=== PATIENT | female | born 1945 | race Hispanic/Latino ===

== ENCOUNTER 2020-08-20 16:14 | Inpatient (IN) | payer SELFPAY ==
[~2020-08-20] VITALS: Ht 134.6 cm; Wt 43.5 kg
[~2020-08-20 16:14] MED LIST: AMLODIPINE BESY10 MG PO; PRAVASTATIN SOD40 MG PO
--- NOTE | 2020-08-20 16:19 | Emergency Department Note ---
History of Present Illnes History of Present Illness Chief Complaint: General Medicine Complaints History of Present Illness 74 yof brought by family for acute confusional state since yesterday however noted to have fallen with dizziness 3 days prior. 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 Any updates have been documented here. Past Medical History Recent Fever: No Clinical Suspicion of Infectio: No New/Unexplained Change in Ment: Yes Past Medical History: Hypertension Past Surgical History: None Social History Smoking Cessation: Never Smoker Alcohol Use: None Any Illegal Drug Use: No Review of Systems Review of Systems Constitutional: Reports no symptoms EENTM: Reports no symptoms Cardiovascular: Reports no symptoms Respiratory: Reports no symptoms Gastrointestinal: Reports no symptoms Genitourinary: Reports no symptoms Musculoskeletal: Reports no symptoms Integumentary: Reports no symptoms Neurological: Reports other (confusion , dizziness) Psychological: Reports no symptoms Endocrine: Reports no symptoms Hematological/Lymphatic: Reports no symptoms Physical Exam Related Data Allergies: Coded Allergies: No Known Allergies (Unverified , 06/01/15) Vital signs reviewed: Yes Physical Exam CONSTITUTIONAL Constitutional: Present well-developed, Present well-nourished HENT HENT: Present normocephalic, Present atraumatic, Present oropharynx clear/moist, Present nose normal HENT L/R: Present left ext ear normal, Present right ext ear normal EYES Eyes: Reports PERRL, Reports conjunctivae normal NECK Neck: Present ROM normal PULMONARY Pulmonary: Present effort normal, Present breath sounds normal CARDIOVASCULAR Cardiovascular: Present regular rhythm, Present heart sounds normal, Present capillary refill normal, Present normal rate GASTROINTESTINAL Abdominal: Present soft, Present nontender, Present bowel sounds normal GENITOURINARY Genitourinary: Present exam deferred SKIN Skin: Present warm, Present dry MUSCULOSKELETAL Musculoskeletal: Present ROM normal NEUROLOGICAL Neurological: Present alert, Present no gross motor or sensory deficits, Pre sent other (AO x 1) PSYCHOLOGICAL Psychological: Present mood/affect normal, Present judgement normal Results Laboratory Lab results reviewed: Yes Imaging Imaging results reviewed: Yes Impressions [place] [id number] Patient Name: STARLA MARIN MR #: [id number] : 1945 Age/Sex: 74/F Req #: [id number] Adm Physician: Ordered by: DARLENE COTTON DO Report #: [id number] Location: ER Room/Bed: Procedure: [id number] CT/CT BRAIN WO Exam Date: 08/20/20 Exam Time: 1630 REPORT STATUS: Signed Exam: Head CT without contrast History: Altered mental status Comparison studies: None Technique: Axial images were obtained from the skull base to the vertex. Coronal and sagittal images reconstructed from the axial data. Dose modulation, iterative reconstruction, and/or weight based adjustment of the mA/kV was utilized to reduce the radiation dose to as low as reasonably achievable. Radiation dose: Total DLP: 921.4 mGy*cm. Estimated effective dose: DLP x 0.015 Intravenous contrast: None Findings: Scalp: No abnormalities. Bones: No fractures, blastic or lytic lesions. Brain sulci: Appropriate size for patient's age Ventricles: Occipital horns are partially effaced. Remaining ventricles are normal in size. No hydrocephalus. Extra-axial spaces: No masses, no fluid collection. Parenchyma: Acute infarcts in the bilateral CNA GNA territories are superimposed on acute or chronic infarcts with cortical/subcortical hypodensity and loss of differentiation along the bilateral lingual and inferior occipital gyri, bilateral occipitotemporal gyri, right para-hippocampal gyrus and within the bilateral hippocampi. Areas of infarction along bilateral inferior occipital lobes may be subacute to chronic. Small age-indeterminate nonhemorrhagic infarct with focal hypodensity in the superior right paramedian cerebellum. Scattered and ill-defined hypodensities in the supratentorial white matter are nonspecific but are most compatible with chronic microvascular ischemic changes. Small dystrophic calcification without surrounding edema in the right occipital lobe just above the calcarine fissure and along the left parietal-occipital sulcus may be sequela of remote infection or inflammation. Sellar/suprasellar region: No abnormalities. Craniocervical junction: Patent foramen magnum. No Chiari one malformation. Middle ear cavities and mastoids: Clear. Included paranasal sinuses: Right sphenoid sinus opacified with chronic mucoperiosteal thickening and hyperdense and partially calcified secretions. Remaining included sinuses are clear. Incidental findings: Bilateral intraocular lens replacements. Atherosclerotic calcifications in the carotid siphons and intradural vertebral arteries. IMPRESSION: 1. Acute nonhemorrhagic infarct superimposed on more remote infarcts (subacute or chronic) in the bilateral CNA GNA territories with involvement of the bilateral hippocampi without significant mass effect. 2. Small nonhemorrhagic age-indeterminate infarct in the right superior paramedian cerebellum. 3. Moderate chronic microvascular ischemic changes. 4. Incidental dystrophic calcification as sequela of remote infection/inflammation. Findings discussed with Dr. Cotton at 5:15 PM on 08/20/2020. Signed by: Dr. Taylor Montano M.D. on 08/20/2020 5:22 PM Dictated By: TAYLOR MONTANO MD 21 Transcribed By: LATRELL on 08/20/201721 COPY TO: DARLENE COTTON DO~ Procedures 12 Lead ECG Interpretation ECG Interpretation : ECG: ECG 1 Lens Grinding Machine Operator: Interpreted by ED physician Date: Aug 20, 2020 Time: 16:46 Prior ECG tracings: reviewed Rhythm: sinus rhythm Rate: normal BPM: 95 QRS axis: normal ST segments normal: Yes T waves normal: Yes Clinical Impression: normal ECG Clinical Decision Tools NIH Stroke Scale Interval: baselline NIH Stroke Score: NIH Stroke Score Response (Comments) Value Level of Consciousness Alert, Keenly Responsive 0 Level of Consciousness Questions Answers One Correctly 1 Level of Consciousness Commands Performs Both Tasks 0 Lateral Gaze Paresis Normal 0 Visual Field Loss No Visual Loss 0 Facial Palsy Normal Symmetrical Move 0 Motor Left Arm No Drift, Arm Stays 45/90 0 Motor Right Arm No Drift, Arm Stays 45/90 0 Motor Left Leg No Drift, Arm Stays 45/90 0 Motor Right Leg No Drift, Arm Stays 45/90 0 Limb Ataxia Absent 0 Sensory Loss Normal 0 Language Aphasia No Aphasia, Normal 0 Dysarthria Normal 0 Extinction and Inattention No Abnormality 0 Total 1 Baseline increased by 4: No Assessment & Plan Medical Decision Making MDM Diff Dx : CVA, UTI, brain trauma. ACS Assessment & Plan Final Impression: (1) Cerebrovascular accident (CVA) involving posterior circulation Depart Disposition: ADMITTED Home Meds Reported Medications Meclizine Hcl (MECLIZINE HCL) 12.5 Mg Tablet, 25 MG PO TID, TAB 08/20/20 Metformin Hcl (METFORMIN HCL) 500 Mg Tablet, 500 MG PO BID, #60 TAB 08/20/20 Losartan Potassium (LOSARTAN POTASSIUM) 25 Mg Tablet, DAILY 08/20/20 Discontinued Reported Medications Pravastatin Sodium (PRAVASTATIN SODIUM) 40 Mg Tablet, 40 MG PO HS 06/04/15 Amlodipine Besylate (AMLODIPINE BESYLATE) 10 Mg Tablet, 10 MG PO HS, TAB 06/04/15 DARLENE COTTON DO Aug 20, 2020 16:19
[2020-08-20] MEDS ORDERED: ASPIRIN 81 MG CHEW TAB PO ONE ×2 (16:30→17:30)
[2020-08-20 16:55] LABS: BASOPHILS % 0.4 % (0.0-1.0); EOSINOPHILS % 0.1 % (0.0-6.0); HEMATOCRIT 40.7 % (34.2-44.1); LYMPHOCYTES # (AUTO) 2.8 (1.0-3.2); MEAN CORPUSCULAR HEMOGLOBIN 26.6 pg (28-32); MEAN CORPUSCULAR HGB CONC 31.9 g/dL (31-35); MEAN CORPUSCULAR VOLUME 83.2 fL (81-99); MONOCYTES # (AUTO) 0.7 (0.2-0.8); MONOCYTES % 7.1 % (4.4-11.3); NEUTROPHILS # (AUTO) 6.5 (2.1-6.9); NEUTROPHILS % 64.1 % (38.7-80.0); PLATELET COUNT 341 x10e3/uL (140-360); RED BLOOD COUNT 4.89 x10e6/uL (3.6-5.1); RED CELL DISTRIBUTION WIDTH 13.1 % (11.7-14.4)
[2020-08-20 16:56] LABS: COLOR,URINE YELLOW (YELLOW)
[2020-08-20 16:57] LABS: BILIRUBIN,URINE NEGATIVE (NEGATIVE); CLARITY,URINE SL CLOUDY (CLEAR); KETONES,URINE NEGATIVE (NEGATIVE); LEUKOCYTE ESTERASE ,URINE MODERATE (NEGATIVE); NITRITE,URINE NEGATIVE (NEGATIVE); PROTEIN,URINE DIPSTICK NEGATIVE (NEGATIVE); URINE UROBILINOGEN 0.2 mg/dL (0.2 - 1)
[2020-08-20 17:08] LABS: BACTERIA,URINE FEW /HPF
[2020-08-20 17:09] LABS: EPITHELIAL CELLS,URINE FEW /LPF; RENAL EPITHELIAL CELLS,URINE RARE
--- NOTE | 2020-08-20 17:09 | Diagnostic Imaging Report ---
EXAMINATION: CHEST SINGLE (PORTABLE) INDICATION: ^confusion ^[id number] ^1630 COMPARISON: None FINDINGS: TUBES and LINES: None. LUNGS: Normal lung volumes. Thickened right paratracheal stripe, may be secondary to mediastinal mass or right upper lobe opacity along the mediastinum. No additional focal opacities or consolidation. PLEURA: No pleural effusion or pneumothorax. HEART AND MEDIASTINUM: Right paratracheal stripe thickening as described above. Cardiac silhouette is unremarkable. BONES AND SOFT TISSUES: No acute osseous lesion. Soft tissues are unremarkable. UPPER ABDOMEN: No free air under the diaphragm. IMPRESSION: Thickened right paratracheal stripe, may be secondary to mediastinal mass or right upper lobe opacity along the mediastinum. Recommend chest CT with contrast for further evaluation. Signed by: Dr. Scot Champagne M.D. on 08/20/2020 5:06 PM
[2020-08-20 17:11] LABS: ALANINE AMINOTRANSFERASE 25 IU/L (0-55); ALBUMIN/GLOBULIN RATIO 0.8 (0.8-2.0); ALKALINE PHOSPHATASE 87 IU/L (40-150); ANION GAP 17.4 mmol/L (8-16); BLOOD UREA NITROGEN 8 mg/dL (7-26); BUN/CREATININE RATIO 11 (6-25); CALCIUM 9.5 mg/dL (8.4-10.2); CARBON DIOXIDE 23 mmol/L (22-29); CHLORIDE 103 mmol/L (98-107); CREATINE KINASE 58 IU/L (29-168); CREATININE, SERUM 0.72 mg/dL (0.57-1.11); EST GLOMERULAR FILTRATION RATE > 60 ML/MIN (60-); GLUCOSE 122 mg/dL (74-118); POTASSIUM 4.4 mmol/L (3.5-5.1); SODIUM 139 mmol/L (136-145)
--- NOTE | 2020-08-20 17:25 | Diagnostic Imaging Report ---
Exam: Head CT without contrast History: Altered mental status Comparison studies: None Technique: Axial images were obtained from the skull base to the vertex. Coronal and sagittal images reconstructed from the axial data. Dose modulation, iterative reconstruction, and/or weight based adjustment of the mA/kV was utilized to reduce the radiation dose to as low as reasonably achievable. Radiation dose: Total DLP: 921.4 mGy*cm. Estimated effective dose: DLP x 0.015 Intravenous contrast: None Findings: Scalp: No abnormalities. Bones: No fractures, blastic or lytic lesions. Brain sulci: Appropriate size for patient's age Ventricles: Occipital horns are partially effaced. Remaining ventricles are normal in size. No hydrocephalus. Extra-axial spaces: No masses, no fluid collection. Parenchyma: Acute infarcts in the bilateral ERGONOMICS ENGINEER territories are superimposed on acute or chronic infarcts with cortical/subcortical hypodensity and loss of differentiation along the bilateral lingual and inferior occipital gyri, bilateral occipitotemporal gyri, right para-hippocampal gyrus and within the bilateral hippocampi. Areas of infarction along bilateral inferior occipital lobes may be subacute to chronic. Small age-indeterminate nonhemorrhagic infarct with focal hypodensity in the superior right paramedian cerebellum. Scattered and ill-defined hypodensities in the supratentorial white matter are nonspecific but are most compatible with chronic microvascular ischemic changes. Small dystrophic calcification without surrounding edema in the right occipital lobe just above the calcarine fissure and along the left parietal-occipital sulcus may be sequela of remote infection or inflammation. Sellar/suprasellar region: No abnormalities. Craniocervical junction: Patent foramen magnum. No Chiari one malformation. Middle ear cavities and mastoids: Clear. Included paranasal sinuses: Right sphenoid sinus opacified with chronic mucoperiosteal thickening and hyperdense and partially calcified secretions. Remaining included sinuses are clear. Incidental findings: Bilateral intraocular lens replacements. Atherosclerotic calcifications in the carotid siphons and intradural vertebral arteries. IMPRESSION: 1. Acute nonhemorrhagic infarct superimposed on more remote infarcts (subacute or chronic) in the bilateral ERGONOMICS ENGINEER territories with involvement of the bilateral hippocampi without significant mass effect. 2. Small nonhemorrhagic age-indeterminate infarct in the right superior paramedian cerebellum. 3. Moderate chronic microvascular ischemic changes. 4. Incidental dystrophic calcification as sequela of remote infection/inflammation. Findings discussed with Dr. Cotton at 5:15 PM on 08/20/2020. Signed by: Dr. Ruddy Montano M.D. on 08/20/2020 5:22 PM
--- NOTE | 2020-08-20 18:25 | NUR ---
PATIENT ARRIVED TO ROOM 297 FROM ER. SHE IS IN STABLE CONDITION. DAUGHTER AT BEDSIDE. ORIENTED TO ROOM AND POLICIES. CALL LIGHT WITHIN REACH. BED IN THE LOWEST POSITION.
--- NOTE | 2020-08-20 19:15 | NUR ---
patient received awake, alert, lying quietly in bed. no c/o pain noted. admit assessment/history obtained. call arndt placed within reach. patient instructed to call for assistance when needed.
--- NOTE | 2020-08-20 19:17 | NUR ---
Bedside shift report given to oncoming nurse. Patient is resting in bed. No acute distress noted at this time. Daughter at bedside. Call light within reach. Bed in the lowest position. Oncoming nurse notified that admission has not been done.
--- NOTE | 2020-08-20 19:45 | NUR ---
report on this patient given to Gilberto Arita RN at this time.
[2020-08-20 20:00] VITALS: BP 137/94
[2020-08-20 20:34] VITALS: BP 137/94
[2020-08-20] MEDS ORDERED: LOSARTAN POTASS25 MG (21:36)
[2020-08-20] MEDS ORDERED: METFORMIN HCL500 MG PO (21:36)
[2020-08-20] MEDS ORDERED: MECLIZINE HCL12.5 MG PO (21:36)
[2020-08-20] MEDS: ALPRAZOLAM 0.25 MG TAB PO PRN (22:24)
[2020-08-21] VITALS: BP 125/81
[2020-08-21 04:00] VITALS: BP 118/48
--- NOTE | 2020-08-21 08:11 | NUR ---
H&P cc: weakness HPI: 74yoF, PCP pt/daughter do not recall, developed waekness and fell on Monday, with associated dizziness. WEnt to PCP, thought it was related to vertigo, given meclizine. By Monday, pt fell again, and now confused, but no weakness/speech changes, daughter brought her to hospita, imaging showed acute on chr stroke. Hx obtained from daughter at bedside. PMH: DM2, HTN PSHx: none Allergies; see emr FH/SH; no cigs; single meds; see MAR ROS: no f/c/s/N/V/D/JUÁREZ/cp/sob/vision changes/leg pain/ v/s revd PE tired appearing anicteric ns1s2 mod bs soft nt nd no e/t skin dry flat affect a&ox3; francis; LEFT ARM AND LEFT LEG 4/5 MOTOR; labs/meds revd A/P: Acute ischemic stroke- f/u MRI; check echo; start ASA and lipitor; PT consult; tele; neuro consult Left hemiplegia- PT consult; as above UTI- ceftiraxone DM2- hab1c/lipids; Mediastinal abnormality? check CT with contrast HTN- losartan Prop: lovenox; pepcid dispo: f/u neuro. SAUNDRA FORBES MD, PHD.
[2020-08-21] MEDS ORDERED: ACETAMINOPHEN 325 MG TAB PO PRN (08:15)
[2020-08-21] MEDS ORDERED: DOCUSATE SODIUM 100 MG CAP PO PRN (08:15)
[2020-08-21] MEDS ORDERED: ONDANSETRON HCL INJ 2MG/ML 2ML 2 MG/ML VIAL IV PRN (08:15)
[2020-08-21 08:26] VITALS: BP 122/88
[2020-08-21 08:35] VITALS: BP 122/88
[2020-08-21] MEDS: LOSARTAN POTASSIUM 25 MG TAB PO SCH (08:57)
[2020-08-21] MEDS ORDERED: ASPIRIN 81 MG ENTERIC COATED PO SCH (09:00)
[2020-08-21 09:18] LABS: CHOL/HDL RATIO 4.1 (3.0-3.6)
[2020-08-21 10:38] LABS: FREE THYROXINE INDEX 2.8535 (1.4-3.8); THYROID STIMULATING HORMONE 0.9 uIU/mL (0.350-4.940)
[2020-08-21] MEDS ORDERED: SODIUM CHLORIDE 0.9% 100 ML ONE (10:48)
[2020-08-21] MEDS ORDERED: IOPAMIDOL 370 MG/ML 200 ML INFUS..BTL INJ ONE (10:49)
--- NOTE | 2020-08-21 10:55 | NUR ---
Patient is transported for radiology at this time.
--- NOTE | 2020-08-21 10:57 | NUR ---
PT evaluated patient today. Pt had good strength on BUE and BLE. Ambulated w/o AD. No LOB but unable to walk a straight path. PT mentioned need for a RW but pt refused. Per daughter, pt may not use the AD even if it will be provided to her. PT advised daughter to always walk close to pt to prevent falling. Pt with short term memory loss and unable to recall safety instructions. No PT needed at this time. Will recommend home with home health or outpatient PT services to address balance issues. Addendum: 08/21/20 at 1102 by Paulie Steele PT Amended: Links added.
--- NOTE | 2020-08-21 11:59 | Diagnostic Imaging Report ---
EXAMINATION: MRI of the brain without contrast. HISTORY: 74-year-old female status post fall, confusion, cerebrovascular accident, neurocysticercosis, COMPARISON: Head CT 08/20/2020 TECHNIQUE: Sagittal T2; axial DWI, T2, FLAIR, T1-IR, T2 gradient echo; coronal FLAIR. IMAGE QUALITY: Artifact from patient's motion limits evaluation of all the sequences. FINDINGS: Parenchyma: 1. Diffuse left occipital lobe extending to the left posterior//medial temporal lobe and parahippocampal region FLAIR hyperintensity and restricted diffusion is consistent with acute left COMMUNITY SPECIALIST ischemic infarct, subtle left medial occipital chart form GRE hypointensity may correspond to microhemorrhage. Mild local mass effect, no midline shift or herniation. 2. Additional areas of acute ischemic infarction involving the right medial temporal lobe to include the hippocampus and parahippocampal regions. Additional smaller foci of acute cortical infarct in the right paramedian vermix and left posterior inferior cerebellum. 3. Cortical and subcortical encephalomalacia in the right inferior occipital lobe/lingual generous is likely the sequela from remote infarct in the right ISAAC distribution. 4. Few scattered and mildly confluent periventricular white matter hypodensities, most likely consistent with chronic small vessel ischemic changes. 5. Again noted bilateral occipital parietal parenchymal calcifications, likely the sequela from remote infection such as neurocysticercosis. 6. No mass, hemorrhage, acute or chronic infarcts. Skull: Unremarkable. Vessels: Expected flow voids present in the major arteries and dural sinuses. Extra-axial spaces: No abnormal signal intensity or mass effect. Brain volume: Within normal limits for age. Ventricles: No hydrocephalus or displacement. Foramen magnum: Unremarkable. Sella: Unremarkable. Paranasal / mastoid sinuses: No significant inflammatory disease. IMPRESSION: Limited evaluation due to motion artifact in spite of this limitation findings as follows: 1. Acute ischemic infarct in the left occipital lobe with possible minimal micro hemorrhagic conversion. Mild local mass effect, no midline shift or herniations. 2. Additional acute ischemic infarcts in the right medial occipitotemporal region and tiny acute cortical infarcts in the vermix and left cerebellum. 3. Findings suggest posterior circulation emboli, a CT angiogram of the head and neck is recommended for further evaluation. 4. Chronic right occipital infarct and microvascular ischemic changes. Signed by: Dr. Nimo Burnette M.D. on 08/21/2020 11:55 AM
--- NOTE | 2020-08-21 12:00 | NUR ---
Patient is back to the room from radiology.
[2020-08-21 12:30] VITALS: BP 116/87
--- NOTE | 2020-08-21 12:35 | Consultation ---
DATE OF CONSULTATION: Neurology Consultation HISTORY OF PRESENT ILLNESS: Ms. Anna Morton is a 74-year-old female with hypertension and diabetes, who is supposed to be taking aspirin at home but does not, takes alprazolam for anxiety, who comes in after two days of confusion, which reportedly started on Monday. The daughter states that she started having memory problems once she became very disoriented. She otherwise states that in the recent past about six months ago, she had a period of time where she became unconscious, dizzy. She had of her son also about 6 or 7 months ago, but otherwise reports relatively functional individual. She is not aware of any previous strokes. However, imaging shows at least one previous stroke, possibly more in the posterior tibial area. 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 The patient is actually doing well. She has been calm, responsive, but her short-term memory about nonfunctional. REVIEW OF SYSTEMS: Entirely negative. PHYSICAL EXAMINATION: VITAL SIGNS: The patient's blood pressure is 125/81, heart rate 85 and regular, temperature is 98.2. HEENT: Her extraocular muscles are intact. Pupils are reactive. Visual processing is diminished. Short-term memory is absent. She is oriented only at times herself. She thinks it is early 1999. She thinks she is 67. She does not know which hospital she is in. 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 CARDIOVASCULAR: Regular rate and rhythm. There is no nuchal rigidity. Strength is diminished on the right budder and arm and leg. Reflexes are symmetric. Toes upgoing bilaterally. ABDOMEN: Soft. NEUROLOGIC: There is no ataxia on exam. 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 She is already on aspirin which she is not taking. My recommendation is to initiate aspirin 325 daily. Continue statins. Get lipid panel and then including vascular imaging of the head and neck. . She might need interventional stent procedure for therapeutic intervention. Discussed risks with the daughter. Discussed clinical therapeutic PT, OT, speech therapy with the family and we will initiate therapy . MD GINO MONTALVO/SYED /[id number]
--- NOTE | 2020-08-21 12:49 | Diagnostic Imaging Report ---
CT of the chest, with contrast, 08/21/2020. History: Concern for mediastinal mass on prior chest x-ray. Comparison: Chest x-ray 08/20/2020. Technique: Multidetector CT scanning of the chest was performed from the level of the apices to the upper abdomen after intravenous administration of contrast. Coronal and sagittal multiplanar reformations were obtained. RADIATION DOSE: Total DLP: 465 mGy*cm Dose modulation, iterative reconstruction, and/or weight based adjustment of the mA/kV was utilized to reduce the radiation dose to as low as reasonably achievable. Discussion: Chest: The atria, ventricles, aorta, and main pulmonary artery are normal in size. There is calcification of the left coronary artery. The thyroid is unremarkable. There is no evidence of axillary or mediastinal adenopathy. There is no paratracheal or upper lobe mass, but there is tortuosity of the right brachiocephalic vessels. Irregular linear scarring is noted in both apices and to a lesser degree in the lung bases. There is no evidence of consolidation, mass, or pleural effusion. Limited evaluation of the upper abdomen shows normal adrenal glands. Bones and soft tissues: No acute abnormality. IMPRESSION: 1. Tortuosity of the brachiocephalic vessels accounts for the prominence of the right paratracheal stripe noted on chest x-ray. There is no mediastinal mass or right upper lobe opacity. 2. Mild bilateral pulmonary scarring. No acute pulmonary abnormality. Signed by: Moses Hui on 08/21/2020 12:45 PM
--- NOTE | 2020-08-21 13:15 | Diagnostic Imaging Report ---
EXAMINATION: CT angiogram of the [place] of [place] and neck with contrast CLINICAL HISTORY: Acute stroke COMPARISON: Brain MRI performed the same day. TECHNIQUE: The head and neck was scanned utilizing a multidetector helical scanner from the thoracic inlet to the vertex after the I.V contrast administration of 100 mL of Isovue-370. Multiplanar sagittal and coronal reconstructions were performed as well. For optimization of of anatomic evaluation, multi-planar reconstructions, maximum intensity projections, and advanced 3D off-line post-processing was obtained and performed on a dedicated stand-alone workstation under the direct supervision of the interpreting physician. Dose modulation, iterative reconstruction, and/or weight based adjustment of the mA/kV was utilized to reduce the radiation dose to as low as reasonably achievable. FINDINGS: The are no areas of abnormal density or enhancement in the brain. There is no mass, hemorrhage or extra-axial fluid collection. The CSF containing spaces are normal in size, position and configuration. CT ANGIOGRAM OF THE [place]: The internal carotid artery segments as well as the middle cerebral and anterior cerebral arteries are normal in caliber. The vertebro-basilar circulation is normal. No vascular malformation or aneurysmal dilatation is seen. The draining venous structures are normal and patent. Anatomic variation: Anterior Communicating Artery: Patent Posterior Communicating Arteries: Not well visualized Vertebral arteries: The right is slightly dominant CT ANGIOGRAM OF THE NECK: If present, stenosis of the carotid bulbs is measured based on NASCET criteria i.e area of maximum stenosis compared to the cervical ICA distal to the bulb. The origin of the carotid arteries is patent. Mild soft and calcified atherosclerotic plaque in the bilateral carotid bifurcations and carotid bulbs, no associated stenosis (0%). Right Carotid Artery: The common carotid, internal and external carotid arteries at the level of the neck are normal in caliber, and patent, no evidence of stenoses. Left carotid artery: The common carotid, internal and external carotid arteries at the level of the neck are normal in caliber, and patent, no evidence of stenoses. Vertebral Arteries: Soft and calcified plaque at the origin of the left vertebral artery results in severe stenosis. Soft calcified plaque at the origin of the right vertebral artery resulting moderate to severe stenoses. Incidental findings: Cervical spine: Disc osteophyte complex formation, bilateral uncovertebral and facet arthrosis results in severe foraminal stenosis on the left at C4-C5, moderate bilaterally at C5-C6 and C6-C7. Opacification of the right sphenoid sinus. IMPRESSION: 1. No acute large vessel occlusion of the intracranial vessels or cervical carotid arteries. 2. Severe stenosis at the origin of the left vertebral artery and moderate on the right. 3. Minimal atherosclerotic plaque in the bilateral carotid bulbs without stenoses (0%). Signed by: Dr. Nimo Burnette M.D. on 08/21/2020 1:12 PM
[2020-08-21] MEDS: ENOXAPARIN SOD INJ 40 MG/0.4 ML SYR SC SCH (18:53)
[2020-08-21 20:00] VITALS: BP 105/74
[2020-08-21] MEDS: ALPRAZOLAM 0.25 MG TAB PO PRN (20:36)
[2020-08-21] MEDS ORDERED: ATORVASTATIN 40 MG TAB PO SCH (21:00)
[2020-08-22] VITALS (10 sets, daily range): BP systolic 100–146; BP diastolic 71–89
[2020-08-22] MEDS ORDERED: ASPIRIN 325 MG TAB PO SCH (09:00)
[2020-08-22] MEDS: LOSARTAN POTASSIUM 25 MG TAB PO SCH (09:05)
--- NOTE | 2020-08-22 11:08 | NUR ---
IM- progress note O/N see below ROS: no f/c/s/N/V/D/JUÁREZ/cp/sob/vision changes/leg pain/ v/s revd PE tired appearing anicteric ns1s2 mod bs soft nt nd no e/t skin dry flat affect a&ox3; francis; LEFT ARM AND LEFT LEG 4/5 MOTOR; labs/meds revd A/P: Acute B/L ischemic strokes, Likely Embolic- f/u echol; ASA and lipitor; PT consult; tele; Left hemiplegia- PT consult; as above Left Verterbal artery stenosis-severe- medical tx UTI- ceftiraxone DM2- hab1c/lipids; Mediastinal abnormality? check CT with contrast HTN- losartan Prop: lovenox; pepcid dispo: cont PT; f/u other recs; SAUNDRA FORBES MD, PHD.
--- NOTE | 2020-08-22 15:50 | NUR ---
Pt is undocumented, has no health insurance. provided self pay packet with community resources including application for gold card to access care through [facility].
[2020-08-22] MEDS: ENOXAPARIN SOD INJ 40 MG/0.4 ML SYR SC SCH (17:42)
--- NOTE | 2020-08-22 21:04 | NUR ---
stroke, no acute overnight events vs 98.8 85 130/79 aox1 calm speech fluent CARDIOVASCULAR: Regular rate and rhythm. There is no nuchal rigidity. Strength is diminished on the right bushler and arm and leg. Reflexes are symmetric. Toes upgoing bilaterally. ABDOMEN: Soft. NEUROLOGIC: There is no ataxia on exam. a/p storkes- multiple - high grade posterior circulatoin steonsis options for intervention primarily maximal pharmachological therapy and outpt eval by neurovascular pt ot speeh and memory therapy high dose statin and plavix 75 q day + baby asa
[2020-08-22] MEDS: ALPRAZOLAM 0.25 MG TAB PO PRN (21:33)
[2020-08-23] VITALS (8 sets, daily range): BP systolic 103–123; BP diastolic 69–85
--- NOTE | 2020-08-23 00:42 | Electroencephalogram ---
DATE OF STUDY: REQUESTING PHYSICIAN: STUDY: 30-minute. INDICATION: EEG is a 30 minutes study being done to evaluate for possible seizures. EEG DATA: Using 10-20 internation electrode placement system done in bipolar and referential montages. EEG data, posterior dominant rhythm is 9 hertz. The patient 2 hertz for the septal symmetric. No abnormal evidence of discharges are captured in this study. EEG INTERPRETATION: This EEG is normal. AILEEN WOO MD RR/MODL /[id number]
--- NOTE | 2020-08-23 07:42 | NUR ---
D/C summary Principal Dx; Acute B/L ischemic strokes, Likely Embolic- f/u echol; ASA and lipitor; PT consult; tele; Left hemiplegia- PT consult; as above Left Verterbal artery stenosis-severe- medical tx UTI- ceftiraxone Secondary Dx; DM2- hab1c/lipids; Mediastinal abnormality? check CT with contrast HTN- losartan Prop: lovenox; pepcid dispo: cont PT; f/u other recs; 08-23 Hba1c/LDL 5.8/117; cont max medical tx; cont PT; f/u echo d./c home stable f/u pcp 2 days and neurology 1 week d/c>35mins SAUNDRA FORBES MD, PHD.
[2020-08-23] MEDS: LOSARTAN POTASSIUM 25 MG TAB PO SCH (08:14)
[2020-08-23] MEDS ORDERED: CLOPIDOGREL BISULFATE 75 MG TAB PO SCH (09:00)
[2020-08-23] MEDS ORDERED: ASPIRIN 81 MG ENTERIC COATED PO SCH (09:00)
--- NOTE | 2020-08-23 11:52 | NUR ---
patient doing well vs 98 91 138/98 aox2 calm pleasant fluent improving short term memory CARDIOVASCULAR: Regular rate and rhythm. There is no nuchal rigidity. Strength is diminished on the right hand tufter and arm and leg. Reflexes are symmetric. Toes upgoing bilaterally. ABDOMEN: Soft. NEUROLOGIC: There is no ataxia on exam. a/p strokes- multiple - high grade posterior circulation stenosis options for intervention primarily maximal pharmacological therapy and outpt eval by neurovascular pt ot speech and memory therapy high dose statin and plavix 75 q day + baby asa 3 week follow up and neurovascular consult for eval of stent appropriateness
[2020-08-23] MEDS ORDERED: Atorvastatin PO (14:10)
[2020-08-23] MEDS ORDERED: PLAVIX75 MG PO (14:10)
[2020-08-23] MEDS ORDERED: ASPIRIN EC81 MG PO (14:10)
--- NOTE | 2020-08-23 14:25 | NUR ---
Rec'd order for home health. Pt is self-pay. Notified her nurse Ana María MICHAEL. Nurse is notifying Dr. Perez.
--- NOTE | 2020-08-23 16:35 | NUR ---
Discharge education provided along with the discharge packet. Patient is told that prescription is filled in their pharmacy of choice by Dr. Perez. Verbalized understanding regarding follow-up appointment with Dr. Conway and PCP. PIV to left FA removed, catheter intact, no bleeding noted. Transported via wheelchair with all personal belongings taken by the daughter.
[2020-08-23] MEDS ORDERED: ATORVASTATIN 40 MG TAB PO SCH (21:00)
--- OUTSIDE RECORDS SUMMARY | 2020-08-27 17:50 | XMS REPORT | Continuity of Care Document ---
Author Author 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 Social History Social Habit Start Date Stop Date Quantity Comments Source Sex Assigned At 1945 00:00:00 1945 00:00:00 Female [facility] Medications Ordered Medication Name Filled Medication Name Start Date Stop Da te Current Medication? Ordering Clinician Indication Dosage Frequency Signature (SIG) Comments Components Source Aspirin (Aspirin Ec) 81 Mg TABLET. Aspirin (Aspirin Ec) 81 Mg TABLET. 2020-08-23 14:10:00 Yes 81 Daily [facility] Atorvastatin Atorvastatin 2020-08-23 14:10:00 Yes 80 Bedtime [facility] Clopidogrel Bisulfate (Plavix) 75 Mg TABLET Clopidogre l Bisulfate (Plavix) 75 Mg TABLET 2020-08-23 14:10:00 Yes 75 Daily [facility] Losartan Potassium Losartan Potassium Yes Da jose [facility] Meclizine Hcl Meclizine Hcl Yes 25 Three Times A Day [facility] Metformin Hcl Metformin Hcl Yes 500 Twice A Day [facility] Amlodipine Besylate Amlodipine Besylate 2020-08-20 00:00:00 No 10 Bedtime [facility] Pravastatin Sodium Pravastatin Sodium 2020-08-20 00:00:00 No 40 Bedtime [facility] Vital Signs Vital Name Observation Time Observation Value Comments Source Body Temperature 2020-08-23 16:17:00 98.3 [degF] [facility] Heart Rate 2020-08-23 16:17:00 93 /min [facility] Respiratory rate 2020-08-23 16:17:00 17 /min [facility] BP Systolic 2020-08-23 16:17:00 118 mm[Hg] [facility] BP Diastolic 2020-08-23 16:17:00 81 mm[Hg] [facility] Oxygen saturation by Pulse oximetry 2020-08-23 16:17:00 100 /min [facility] BMI (Body Mass Index) 2020-08-20 21:58:00 24.0 kg/m2 [facility] Weight 2020-08-20 17:18:00 96 [lb_av] [facility] Procedures Procedure Date / Time Performed Performing Clinician Marychuy haydee Computed tomography of chest with contrast 2020-08-21 00:00:00 [facility] CT angiography of neck 2020-08-21 00:00:00 [facility] Computed tomography angiography of brain 2020-08-21 00:00:00 [facility] Magnetic resonance imaging of brain without contrast 2020-08-21 00:00:00 [facility] Computed tomography of brain without radiopaque contrast 2020-07 00:00:00 [facility] Plan of Care Planned Activity Planned Date Details Comments Source Instructions Diabetes and Diet [facility] Instructions Hypertension [facility] Encounters Start Date/Time End Date/Time Encounter Type Admission Type [facility] Facility Care Department Encounter ID Source 2020-08-20 18:16:00 2020-08-23 16:35:00 Discharged Inpatient 1 SAUNDRA FORBES [facility] [id number] [facility] Results Test Description Test Time Test Comments Results Result Comments Source Capillary blood glucose measurement by glucometer (mas s/volume) 2020-08-23 15:12:00 Test Item Bedside Glucose (test code = 47273-2) 127 mg/dL 70-120 Meter ID: [id number] [id number]:49[facility]00[facility] 1945 [place] [place] [address] Patient Name: STARLA MARIN MR #: [id number] : 1945 Age/Sex: 74/F Req #: [id number] [facility] Physician: SAUNDRA FORBES MD Ordered by: AILEEN WOO MD Report #: [id number] Location: [facility] [place] [facility] [place] __ Procedure: [id number] CT/CTA NECK Exam Date: 08/21/20 Exam Time: 1140 REPORT STATUS: Signed EXAMINATION: CT angiogram of the [place] an d neck with contrast CLINICAL HISTORY: Acute stroke COMPARISON: Brain MR I performed the same day. TECHNIQUE: The head and neck was scanned utilizi ng a multidetector helical scanner from the thoracic inlet to the vertex afte r the I.V contrast administration of 100 mL of Isovue-370. Multiplanar sagitta l and coronal reconstructions were performed as well. For optimization of of anatomic evaluation, multi-planar reconstructions, maximum intensity projecti ons, and advanced 3D off-line post-processing was obtained and performed on a dedicated stand-alone workstation under the direct supervision of the [facility] physician. Dose modulation, iterative reconstruction, and/or weight based adjustment of the mA/kV was utilized to reduce the radiation dose to as low a s reasonably achievable. FINDINGS: The are no areas of abnormal density or enhancement in the brain. There is no mass, hemorrhage or extra-axial flu id collection. The CSF containing spaces are normal in size, position and conf iguration. CT ANGIOGRAM OF THE [place]: The internal carotid ar key segments as well as the middle cerebral and anterior cerebral arteries ar e normal in caliber. The vertebro-basilar circulation is normal. No vascular m alformation or aneurysmal dilatation is seen. The draining venous structures are normal and patent. Anatomic variation: Anterior Communicating Artery : Patent Posterior Communicating Arteries: Not well visualized Vertebral art eries: The right is slightly dominant CT ANGIOGRAM OF THE NECK: If pre sent, stenosis of the carotid bulbs is measured based on NASCET criteria i.e a adali of maximum stenosis compared to the cervical ICA distal to the bulb. Th e origin of the carotid arteries is patent. Mild soft and calcified atheros clerotic plaque in the bilateral carotid bifurcations and carotid bulbs, no as sociated stenosis (0%). Right Carotid Artery: The common carotid, interna l and external carotid arteries at the level of the neck are normal in caliber , and patent, no evidence of stenoses. Left carotid artery: The common c arotid, internal and external carotid arteries at the level of the neck are no rmal in caliber, and patent, no evidence of stenoses. Vertebral Arteries: Soft and calcified plaque at the origin of the left vertebral artery results in severe stenosis. Soft calcified plaque at the origin of the right vertebral artery resulting moderate to severe stenoses. Incidental findings: Cervi leoncio spine: Disc osteophyte complex formation, bilateral uncovertebral and face t arthrosis results in severe foraminal stenosis on the left at C4-C5, moderat e bilaterally at C5-C6 and C6-C7. Opacification of the right sphenoid sinus. IMPRESSION: 1. No acute large vessel occlusion of the intracranial ves sels or cervical carotid arteries. 2. Severe stenosis at the origin of t he left vertebral artery and moderate on the right. 3. Minimal atheroscl erotic plaque in the bilateral carotid bulbs without stenoses (0%). Anabel d by: Dr. Brittani Burnette M.D. on 08/21/2020 1:12 PM Dictated By: BRITTAIN Mckenna MD 11 Transcribed By: LATRELL on 08/21/201311 COPY TO: AILEEN WOO MD [facility] BRAIN 2020-08-21 12:49:00 [facility] : 1945 [facility] [place] [address] Patient Name: STARLA MARIN MR #: [id number] : 1945 Age/Sex: 74/F Req #: [id number] Adm Physician: SAUNDRA FORBES MD O rdered by: AILEEN WOO MD Report #: [id number] Location: MED/SURG3 Room/Bed: [facility] [place] __ Procedure: [id number] CT/CTA BRAIN Exam Date: 08/21/20 Exam Time: 1140 REPORT STATUS: Signed EXAMINATION: CT angiogram of the [place] a nd neck with contrast CLINICAL HISTORY: Acute stroke COMPARISON: Brain M RI performed the same day. TECHNIQUE: The head and neck was scanned utiliz ing a multidetector helical scanner from the thoracic inlet to the vertex aft er the I.V contrast administration of 100 mL of Isovue-370. Multiplanar sagitt al and coronal reconstructions were performed as well. For optimization of o f anatomic evaluation, multi-planar reconstructions, maximum intensity project ions, and advanced 3D off-line post-processing was obtained and performed on a dedicated stand-alone workstation under the direct supervision of the interpr eting physician. Dose modulation, iterative reconstruction, and/or weight base d adjustment of the mA/kV was utilized to reduce the radiation dose to as low as reasonably achievable. FINDINGS: The are no areas of abnormal densit y or enhancement in the brain. There is no mass, hemorrhage or extra-axial fl uid collection. The CSF containing spaces are normal in size, position and con figuration. CT ANGIOGRAM OF THE [place]: The internal carotid a rtery segments as well as the middle cerebral and anterior cerebral arteries a re normal in caliber. The vertebro-basilar circulation is normal. No vascular malformation or aneurysmal dilatation is seen. The draining venous structure s are normal and patent. Anatomic variation: Anterior Communicating Arter y: Patent Posterior Communicating Arteries: Not well visualized Vertebral ar teries: The right is slightly dominant CT ANGIOGRAM OF THE NECK: If pr esent, stenosis of the carotid bulbs is measured based on NASCET criteria i.e area of maximum stenosis compared to the cervical ICA distal to the bulb. T he origin of the carotid arteries is patent. Mild soft and calcified athero sclerotic plaque in the bilateral carotid bifurcations and carotid bulbs, no a ssociated stenosis (0%). Right Carotid Artery: The common carotid, marketing summer intern al and external carotid arteries at the level of the neck are normal in calibe r, and patent, no evidence of stenoses. Left carotid artery: The common carotid, internal and external carotid arteries at the level of the neck are n ormal in caliber, and patent, no evidence of stenoses. Vertebral Arteries: Soft and calcified plaque at the origin of the left vertebral artery results i n severe stenosis. Soft calcified plaque at the origin of the right vertebral artery resulting moderate to severe stenoses. Incidental findings: Cerv ical spine: Disc osteophyte complex formation, bilateral uncovertebral and fac et arthrosis results in severe foraminal stenosis on the left at C4-C5, modera te bilaterally at C5-C6 and C6-C7. Opacification of the right sphenoid sinus. IMPRESSION: 1. No acute large vessel occlusion of the intracranial ve ssels or cervical carotid arteries. 2. Severe stenosis at the origin of the left vertebral artery and moderate on the right. 3. Minimal atherosc lerotic plaque in the bilateral carotid bulbs without stenoses (0%). Sign ed by: Dr. Brittani Burnette M.D. on 08/21/2020 1:12 PM Dictated By: BRITTANI ZELAYA MD 11 Transcribed By : LATRELL on 08/21/201311 COPY TO: AILEEN WOO MD CT CHEST W 2020-08-21 12:39:00 [facility] : 1945 Sex: F [facility] [address] [place] [address] Patient Name: STARLA MARIN MR #: [id number] : 1945 Age/Sex: 74/F Req #: [id number] [facility] Physician: SAUNDRA FORBES MD O rdered by: SAUNDRA FORBES MD Report #: [id number] Lo cation: MED/SURG3 Room/Bed: [facility] ____ Procedure: [id number] CT/CT CHEST W Exam Date: 08/21/20 Exam Time: 1140 REPORT STATUS: Signed CT of the chest, with contrast, 08/21/2020. History: Concern for mediastinal mass on prior chest x-ray. Com parison: Chest x-ray 08/20/2020. Technique: Multidetector CT scanning of [facility] chest was performed from the level of the apices to the upper abdomen after intravenous administration of contrast. Coronal and sagittal multiplanar refo rmations were obtained. RADIATION DOSE: Total DLP: 465 mGy*cm Dose modulation, iterative reconstruction, and/or weight based adjustment of the mA/kV was utilized to reduce the radiation dose to as low as reasonably ac hievable. Discussion: Chest: The atria, ventricles, aorta, and frank n pulmonary artery are normal in size. There is calcification of the left nichole nary artery. The thyroid is unremarkable. There is no evidence of axillary or mediastinal adenopathy. There is no paratracheal or upper lobe mass, but there is tortuosity of the right brachiocephalic vessels. Irregular linear sc arring is noted in both apices and to a lesser degree in the lung bases. There is no evidence of consolidation, mass, or pleural effusion. Limited e valuation of the upper abdomen shows normal adrenal glands. Bones and soft tissues: No acute abnormality. IMPRESSION: 1. Tortuosity of the bra chiocephalic vessels accounts for the prominence of the right paratracheal str ipe noted on chest x-ray. There is no mediastinal mass or right upper lobe [place]. 2. Mild bilateral pulmonary scarring. No acute pulmonary abnormality. Signed by: Moses Hui on 08/21/2020 12:45 PM Dictated By: MOSES ECHEVARRIA MD 44 Transcribe d By: LATRELL on 08/21/201244 COPY TO: SAUNDRA FOREBS MD MRI BRAIN [id number] 11:45:00 [facility] : 1945 Sex: [facility] [address] [facility] Patient [place] [address] Patient Name: STARLA MARIN MR #: [id number] : 1945 Age/Sex: 74/F Req #: [id number] [facility] Physician: SAUNDRA FORBES MD O rdered by: AILEEN WOO MD Report #: [id number] Location: MED/SURG3 Room/Bed: [facility] [place] __ Procedure: [id number] MRI/MRI BRAIN WO Exam Date: Exam Time: REPO RT STATUS: Signed EXAMINATION: MRI of the brain without contrast. HISTOR Y: 74-year-old female status post fall, confusion, cerebrovascular accident, n eurocysticercosis, COMPARISON: Head CT 08/20/2020 TECHNIQUE: Sagittal T2; ax ial DWI, T2, FLAIR, T1-IR, T2 gradient echo; coronal FLAIR. IMAGE QUALITY: Artifact from patient's motion limits evaluation of all the sequences. F INDINGS: Parenchyma: 1. Diffuse left occipital lobe extending to the left posterior//medial temporal lobe and parahippocampal region FLAIR hyperint ensity and restricted diffusion is consistent with acute left MARKETING ANALYST ischemic inf arct, subtle left medial occipital chart form GRE hypointensity may correspond to microhemorrhage. Mild local mass effect, no midline shift or herniation. 2. Additional areas of acute ischemic infarction involving the right medial temporal lobe to include the hippocampus and parahippocampal regions. Addition al smaller foci of acute cortical infarct in the right paramedian vermix and l eft posterior inferior cerebellum. 3. Cortical and subcortical encephalomalac ia in the right inferior occipital lobe/lingual generous is likely the sequela from remote infarct in the right ISAAC distribution. 4. Few scattered and mi ldly confluent periventricular white matter hypodensities, most likely consist ent with chronic small vessel ischemic changes. 5. Again noted bilateral oc cipital parietal parenchymal calcifications, likely the sequela from remote in fection such as neurocysticercosis. 6. No mass, hemorrhage, acute or chronic infarcts. Skull: Unremarkable. Vessels: Expected flow vo ids present in the major arteries and dural sinuses. Extra-axial spaces : No abnormal signal intensity or mass effect. Brain volume: Within uzma l limits for age. Ventricles: No hydrocephalus or displacement. Fo ramen magnum: Unremarkable. Sella: Unremarkable. Paranasal / m astoid sinuses: No significant inflammatory disease. IMPRESSION: Limit ed evaluation due to motion artifact in spite of this limitation findings as f ollows: 1. Acute ischemic infarct in the left occipital lobe with possible minimal micro hemorrhagic conversion. Mild local mass effect, no midline shif t or herniations. 2. Additional acute ischemic infarcts in the right med ial occipitotemporal region and tiny acute cortical infarcts in the vermix and left cerebellum. 3. Findings suggest posterior circulation emboli, a CT a ngiogram of the head and neck is recommended for further evaluation. 4. Chronic right occipital infarct and microvascular ischemic changes. Signed by: Dr. Brittani Burnette M.D. on 08/21/2020 11:55 AM Dictated By: BRITTANI BURNETTE MD 54 Transcribed By: LATRELL on 08/21/201154 COPY TO: AILEEN WOO MD Erythrocyte sedimentation rate by Westergren [id number] 11:19:00* Test Item Value Reference Range Interpretation Comments Erythrocyte Sedimentation Rate (test code = 4537-7) 49 mm/h 0- 20 [facility] by [id number] 11:19:00* Test Item Value Reference Range Interpretation Comments Anti-Nuclear Antibody Screen (test code = 5048-4) Negative . Negative <1:80 Borderline 1:80 Positive > 1:80Performed at: [facility] Lab[address] [id number] 3Lab Director: Mayito Lomeli MD, Phone: [phone] Christi [facility] Center [facility] AreaFluoroscopic procedure less than one hour [id number] 09:48:00* Test Item Value Reference Range Interpretation Comments Hemoglobin A1c Percent (test code = Hemoglobin A1c Percent) 5.8 % 4.0-7.0 [facility] plasma triglyceride measurement (mass/volume)2020-08-21 09:48:00* Test Item Value Reference Range Interpretation Comments Triglycerides Level (test code = 2571-8) 104 mg/dL 0-149 [facility] cholesterol measurement (mass/volume)2020-08-21 09:48:00* Test Item Value Reference Range Interpretation Comments Cholesterol Level (test code = 2093-3) 182 mg/dL 0-199 Less than 200 mg/dL Low Cnfw910 - 239 mg/dL Borderline Nxmy360 m g/dl and greater High Risk [facility] cholesterol in LDL measurement (mass/volume) 2020-08-21 09:48:00* Test Item Value Reference Range Interpretation Comments LDL Cholesterol (test code = 2089-1) 117 mg/dL 60-130 [facility] cholesterol in HDL measurement (mass/volume)2020-08-21 09:48:00* Test Item Value Reference Range Interpretation Comments HDL Cholesterol (test code = 2085-9) 44 mg/dL 40-60 [facility] plasma total cholesterol/cholesterol in HDL mass [id number] 09:48:00* Test Item Value Reference Range Interpretation Comments Cholesterol/HDL Ratio (test code = 9830-1) 4.1 3.0-3.6 [facility] thy[facility]ine [id number] 09:48:00* Test Item Value Reference Range Interpretation Comments Free Thyroxine Index (test code = 38784-9) 2.8535 1.4-3.8 [facility] plasma thyroxine (T4) measurement (mass/volume)2020-08-21 09:48:00* Test Item Value Reference Range Interpretation Comments Thyroxine (T4) (test code = 3026-2) 8.81 ug/dL 4.5-10.9 Our current method for Total T4 is not recommended for use as the only marker fo r evaluating patients for thyroid disorders.[facility] or plasma triiodothyronine resin uptake (T3RU)2020-08-21 09:48:00* Test Item Value Reference Range Interpretation Comments Triiodothyronine (T3) Uptake (test code = 3050-2) 32.39 % 22.5 -37.0 [facility] plasma thyrotropin measurement by detection limit <= 0.005 miu/l (units/volume)2020-08-21 09:48:00* Test Item Value Reference Range Interpretation Comments Thyroid Stimulating Hormone (TSH) (test code = 35397-1) 0.900 0.350-4.940 [facility] plasma homocysteine measurement (moles/volume)2020-08-21 09:48:00* Test Item Value Reference Range Interpretation Comments Homocysteine (test code = 58998-5) 11.1 0.0-19.2 Performed at: [address] [id number] Director: Mayito Lomeli MD, Phone: [phone] Christi Medical Center Bay AreaFluoroscopic procedure less than one hour [id number] 18:26:00* Test Item Value Reference Range Interpretation Comments Coronavirus (PCR) (test code = Coronavirus (PCR)) NOT DETECTED NOTD ETECTED SARS-CoV-2 PCRHologic Aptima SARS-CoV-2 assay is a nucleic amplification test in tended for the qualitative detection of RNA from SARS-CoV-2 from nasopharyngeal (FLAG DECORATOR) specimens. It is used under Emergency Use Authorization (EUA) by FDA.A posi tive result is indicative of the presence of SARS-CoV-2 RNA. Clinical correlatio n with patient history and other diagnostic information is necessary to determin e patient infection status.A negative (Not Detected) result does not preclude SA RS-CoV-2 infection. Clinical Correlation with patient history and other diagnost ic information should be used in patient management decisions.Invalid: Unable to generate a valid result on this specimen. Please submit a new specimen for repr at testing oc clinically indicated.Tesing performed by:[facility] Laboratory Services[address] [place] [id number], Zacarias kim MD, PhDCorpus Christi Medical Center Bay AreaBlcook hospital leukocytes automated count (number/volume)2020-08-20 17:30:00* Test Item Value Reference Range Interpretation Comments White Blood Count (test code = 6690-2) 10.13 10*3/uL 4.8-10.8 [facility]Bl[facility] hospital erythrocytes automated count (number/volume)2020-08-20 17:30:00* Test Item Value Reference Range Interpretation Comments Red Blood Count (test code = 789-8) 4.89 10*6/mL 3.6-5.1 [facility] AreaBlood hemoglobin measurement (moles/volume)2020-08-20 17:30:00* Test Item Value Reference Range Interpretation Comments Hemoglobin (test code = 42671-3) 13.0 g/dL 12.0-16.0 [facility] AreaAutomated blood hematocrit (volume fraction)2020-08-20 17:30:00* Test Item Value Reference Range Interpretation Comments Hematocrit (test code = 4544-3) 40.7 % 34.2-44.1 [facility] AreaAutomated erythrocyte mean corpuscular [id number] 17:30:00* Test Item Value Reference Range Interpretation Comments Mean Corpuscular Volume (test code = 787-2) 83.2 81-99 [facility] AreaAutomated erythrocyte mean corpuscular hemoglobin (mass per erythrocyte)2020-08-20 17:30:00* Test Item Value Reference Range Interpretation Comments Mean Corpuscular Hemoglobin (test code = 785-6) 26.6 pg 28-32 [facility] AreaAutomated erythrocyte mean corpuscular hemoglobin concentration measurement (mass/volume)2020-08-20 17:30:00* Test Item Value Reference Range Interpretation Comments Mean Corpuscular Hemoglobin Concent (test code = 786-4) 31.9 g/dL 31-35 [facility] AreaRDW [id number] 17:30:00* Test Item Value Reference Range Interpretation Comments Red Cell Distribution Width (test code = 37672-6) 13.1 % 11.7 -14.4 [facility] AreaAutomated blood platelet count (count/volume)2020-08-20 17:30:00* Test Item Value Reference Range Interpretation Comments Platelet Count (test code = 777-3) 341 10*3/uL 140-360 [facility] AreaAutomated blood segmented neutrophil count as percentage of total [id number] 17:30:00* Test Item Value Reference Range Interpretation Comments Neutrophils (%) (Auto) (test code = 35645-9) 64.1 % 38.7-80.0 [facility] AreaAutomated blood lymphocyte count as percentage ot total [id number] 17:30:00* Test Item Value Reference Range Interpretation Comments Lymphocytes (%) (Auto) (test code = 736-9) 28.0 % 18.0-39.1 [facility] Area[facility] blood monocyte count as percentage of total [id number] 17:30:00* Test Item Value Reference Range Interpretation Comments Monocytes (%) (Auto) (test code = 5905-5) 7.1 % 4.4-11.3 [facility] AreaAutomated blood eosinophil count as percentage of total klqubixpwe2041-90-33 17:30:00* Test Item Value Reference Range Interpretation Comments Eosinophils (%) (Auto) (test code = 713-8) 0.1 % 0.0-6.0 [facility] AreaAutomated blood basophil count as percentage of total ldvibyfsen6304-85-65 17:30:00* Test Item Value Reference Range Interpretation Comments Basophils (%) (Auto) (test code = 706-2) 0.4 % 0.0-1.0 [facility] AreaFluoroscopic procedure less than one hour [id number] 17:30:00* Test Item Value Reference Range Interpretation Comments IM GRANULOCYTES % (test code = IM GRANULOCYTES %) 0.3 % 0.0- 1.0 [facility] AreaAutomated blood neutrophil count 2020-08-20 17:30:00* Test Item Value Reference Range Interpretation Comments Neutrophils # (Auto) (test code = 751-8) 6.5 2.1-6.9 [facility] AreaBlood lymphocytes count (number/volume) 2020-08-20 17:30:00* Test Item Value Reference Range Interpretation Comments Lymphocytes # (Auto) (test code = 90620-7) 2.8 1.0-3.2 [facility] monocytes automated count (number/volume)2020-08-20 17:30:00* Test Item Value Reference Range Interpretation Comments Monocytes # (Auto) (test code = 742-7) 0.7 0.2-0.8 [facility] AreaAutomated blood eosinophil count 2020-08-20 17:30:00* Test Item Value Reference Range Interpretation Comments Eosinophils # (Auto) (test code = 711-2) 0.0 0.0-0.4 [facility] AreaAutomated blood basophil count (count/volume)2020-08-20 17:30:00* Test Item Value Reference Range Interpretation Comments Basophils # (Auto) (test code = 704-7) 0.0 0.0-0.1 [facility] AreaFluoroscopic procedure less than one hour [id number] 17:30:00* Test Item Value Reference Range Interpretation Comments Absolute Immature Granulocyte (auto ([place] t code = Absolute Immature Granulocyte (auto) 0.03 10*3/uL 0-0.1 [facility] sodium [facility] (moles/volume)2020-08-20 17:30:00* Test Item Value Reference Range Interpretation Comments Sodium Level (test code = 2951-2) 139 mmol/L 136-145 [facility] potassium measurement (moles/volume)2020-08-20 17:30:00* Test Item Value Reference Range Interpretation Comments Potassium Level (test code = 2823-3) 4.4 mmol/L 3.5-5.1 [facility] chloride measurement (moles/volume)2020-08-20 17:30:00* Test Item Value Reference Range Interpretation Comments Chloride Level (test code = 2075-0) 103 mmol/L 98-107 [facility] carbon dioxide, total measurement (moles/volume)2020-08-20 17:30:00* Test Item Value Reference Range Interpretation Comments Carbon Dioxide Level (test code = 2028-9) 23 mmol/L 22- [facility] anion [id number] 17:30:00* Test Item Value Reference Range Interpretation Comments Anion Gap (test code = 32598-2) 17.4 mmol/L 8-16 [facility] urea nitrogen measurement (mass/volume)2020-08-20 17:30:00* Test Item Value Reference Range Interpretation Comments Blood Urea Nitrogen (test code = 3094-0) 8 mg/dL 7-26 [facility] creatinine measurement (mass/volume)2020-08-20 17:30:00* Test Item Value Reference Range Interpretation Comments Creatinine (test code = 2160-0) 0.72 mg/dL 0.57-1.11 [facility] urea nitrogen/creatinine mass [id number] 17:30:00* Test Item Value Reference Range Interpretation Comments BUN/Creatinine Ratio (test code = 3097-3) 11 6-25 [facility] AreaEstimated glomerular filtration rate (GFR) ajcjqvofwgcwv0412-16-99 17:30:00* Test Item Value Reference Range Interpretation Comments Estimat Glomerular Filtration Rate (test code = 126008913) > 60 mL/ min >60 Ranges were taken from the National Kidney Disease Education Program and the [facility] literature.Reference ranges:60 or greater: [place]61-94 ( for 3 consecutive months): Chronic kidney disease 15 or less: Kidney failureCorp[facility] AreaGlucose tjanpouuykz3716-83-32 17:30:00* Test Item Value Reference Range Interpretation Comments Glucose Level (test code = OBO2455) 122 mg/dL 74-118 [facility] calcium measurement (mass/volume)2020-08-20 17:30:00* Test Item Value Reference Range Interpretation Comments Calcium Level (test code = 84965-7) 9.5 mg/dL 8.4-10.2 [facility] plasma total bilirubin measurement (mass/volume)2020-08-20 17:30:00* Test Item Value Reference Range Interpretation Comments Total Bilirubin (test code = 1975-2) 0.5 mg/dL 0.2-1.2 [facility] AreaFluoroscopic procedure less than one hour [id number] 17:30:00* Test Item Value Reference Range Interpretation Comments Aspartate Amino Transf (AST/SGOT) (test code = Aspartate Amino Transf (AST/SGOT)) 39 [IU]/L 5-34 [facility] plasma alanine aminotransferase measurement (enzymatic activity/volume)2020-08-20 17:30:00* Test Item Value Reference Range Interpretation Comments Alanine Aminotransferase (ALT/SGPT) (test code = 1742-6) 25 [IU]/L 0-55 [facility] protein measurement (mass/volume)2020-08-20 17:30:00* Test Item Value Reference Range Interpretation Comments Total Protein (test code = 2885-2) 8.9 g/dL 6.5-8.1 [facility] albumin measurement (mass/volume)2020-08-20 17:30:00* Test Item Value Reference Range Interpretation Comments Albumin (test code = 1751-7) 4.0 g/dL 3.5-5.0 [facility] AreaPlasma globulin measurement (mass/volume) 2020-08-20 17:30:00* Test Item Value Reference Range Interpretation Comments Globulin (test code = 52336-7) 4.9 g/dL 2.3-3.5 [facility] albumin/globulin mass [id number] 17:30:00* Test Item Value Reference Range Interpretation Comments Albumin/Globulin Ratio (test code = 1759-0) 0.8 0.8-2.0 [facility] alkaline phosphatase measurement (enzymatic activity/volume)2020-08-20 17:30:00* Test Item Value Reference Range Interpretation Comments Alkaline Phosphatase (test code = 6768-6) 87 [IU]/L 40-150 [facility] or plasma creatine kinase measurement (enzymatic activity/volume)2020-08-20 17:30:00* Test Item Value Reference Range Interpretation Comments Creatine Kinase (test code = 2157-6) 58 [IU]/L 29-168 [facility] plasma creatine kinase MB measurement (mass/volume)2020-08-20 17:30:00* Test Item Value Reference Range Interpretation Comments Creatine Kinase MB (test code = 76174-2) 0.70 ng/mL 0-5.0 [facility] AreaTroponin I measurement by highly sensitive enzyme kfwbmglyltk8466-13-34 17:30:00* Test Item Value Reference Range Interpretation Comments Troponin I (test code = 59675-7) 0.001 ng/mL 0-0.300 [facility] AreaCT BRAIN [id number] 17:05:00 [facility] : 1945 Sex: F [facility] [address] [address] Patient Name: STARLA MARIN MR #: [id number] : 1945 Age/Sex: 74/F Req #: [id number] Adm Physician: Jagruti laurent by: MOSES HANSON DO Report #: [id number] L ocation: ER Room/Bed: ___ Procedure: [id number] CT/CT BRAIN WO Exam Date: 08/20/20 Exam Time: 1630 REPORT STATUS: Signed Exam: Head CT without contrast History: Altered mental status Comparison studies: None Technique: Axial images were o btained from the skull base to the vertex. Coronal and sagittal images reconst ructed from the axial data. Dose modulation, iterative reconstruction, and/or weight based adjustment of the mA/kV was utilized to reduce the radiation dos e to as low as reasonably achievable. Radiation dose: Total DLP: 921 .4 mGy*cm. Estimated effective dose: DLP x 0.015 Intravenous contrast: Non e Findings: Scalp: No abnormalities. Bones: No fractures, blastic or lytic lesions. Brain sulci: Appropriate size for patient's age Ventricle s: Occipital horns are partially effaced. Remaining ventricles are normal in s ize. No hydrocephalus. Extra-axial spaces: No masses, no fluid collection. Parenchyma: Acute infarcts in the bilateral MARKETING ANALYST territories are superimpos ed on acute or chronic infarcts with cortical/subcortical hypodensity and loss of differentiation along the bilateral lingual and inferior occipital gyri, bilateral occipitotemporal gyri, right para-hippocampal gyrus and within the bilateral hippocampi. Areas of infarction along bilateral inferior occipital l obes may be subacute to chronic. Small age-indeterminate nonhemorrhagic in farct with focal hypodensity in the superior right paramedian cerebellum. Scattered and ill-defined hypodensities in the supratentorial white matter are nonspecific but are most compatible with chronic microvascular ischemic fallon ges. Small dystrophic calcification without surrounding edema in the right occipital lobe just above the calcarine fissure and along the left parietal-oc cipital sulcus may be sequela of remote infection or inflammation. Sellar /suprasellar region: No abnormalities. Craniocervical junction: Patent foramen magnum. No Chiari one malformation. Middle ear cavities and mastoids: Ashley r. Included paranasal sinuses: Right sphenoid sinus opacified with chronic m ucoperiosteal thickening and hyperdense and partially calcified secretions. Re maining included sinuses are clear. Incidental findings: Bilateral intra ocular lens replacements. Atherosclerotic calcifications in the carotid siphon s and intradural vertebral arteries. IMPRESSION: 1. 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 2. Small nonhemorrhagic age-indeterminate infar ct in the right superior paramedian cerebellum. 3. Moderate chronic microva scular ischemic changes. 4. Incidental dystrophic calcification as sequela of remote infection/inflammation. Findings discussed with Dr. Hanson at 5:15 PM on 08/20/2020. Signed by: Dr. Taylor Leung M.D. on 08/20/2020 5:22 PM Dictated By: TAYLOR LEUNG MD 21 Transcribed By: LATRELL on 08/20/201721 COPY TO: MOSES HANSON DO [facility] SINGLE (PORTABLE)2020-08-20 17:00:00 [facility] : 1945 Sex: F [facility] [address] [facility], [place], [place] [address] Patient Name: STARLA MARIN MR #: [id number] : 1945 Age/Sex: 74/F Req #: [id number] Adm Physician: Jagruti laurent by: MOSES HANSON DO Report #: [id number] L ocation: ER Room/Bed: ___ Procedure: [id number] DX/CHEST SINGLE (PORTABLE) Exam Date: 08/20/20 Exam Time: 163 REPORT STATUS: Signed EXAMINATION: CHEST SINGLE (PORTABLE) INDICATION: confusion 20200820 COMPARISON: None FINDINGS: TUBES and LINES: None. LUNGS: Normal lung volumes . Thickened right paratracheal stripe, may be secondary to mediastinal mass o r right upper lobe opacity along the mediastinum. No additional focal opaciti es or consolidation. PLEURA: No pleural effusion or pneumothorax. HEA RT AND MEDIASTINUM: Right paratracheal stripe thickening as described above. Cardiac silhouette is unremarkable. BONES AND SOFT TISSUES: No acute osse ous lesion. Soft tissues are unremarkable. UPPER ABDOMEN: No free air un magda the diaphragm. IMPRESSION: Thickened right paratracheal stripe, may be secondary to mediastinal mass or right upper lobe opacity along the med iastinum. Recommend chest CT with contrast for further evaluation. Sig yang by: Dr. Grace Champagne M.D. on 08/20/2020 5:06 PM Dictated By: TIM CHAMPAGNE MD 05 Tr anscribed By: LATRELL on 08/20/201705 COPY TO: MOSES HANSON DO Urine color [id number] 14:25:00* Test Item Value Reference Range Interpretation Comments Urine Color (test code = 5778-6) YELLOW YELLOW [facility] AreaUrine [id number] 14:25:00* Test Item Value Reference Range Interpretation Comments Urine Clarity (test code = 35195-6) SL CLOUDY CLEAR [facility] Hospitalpecific gravity of Urine by Test strip 2020-08-20 14:25:00* Test Item Value Reference Range Interpretation Comments Urine Specific [place] (test code = 5811-5) 1.015 1.010-1.02 5 [facility] Area[facility] pH measurement by automated test [id number] 14:25:00* Test Item Value Reference Range Interpretation Comments Urine pH (test code = 24367-6) 7 5-7 [facility] AreaUrine leukocyte esterase detection by [id number] 14:25:00* Test Item Value Reference Range Interpretation Comments Urine Leukocyte Esterase (test code = 5799-2) MODERATE NEGATIVE [facility] AreaUrine nitrite [id number] 14:25:00* Test Item Value Reference Range Interpretation Comments Urine Nitrite (test code = 80854-5) NEGATIVE NEGATIVE [facility] Area[facility] protein measurement by test strip (mass/volume)2020-08-20 14:25:00* Test Item Value Reference Range Interpretation Comments Urine Protein (test code = 5804-0) NEGATIVE NEGATIVE [facility] Area[facility] glucose [id number] 14:25:00* Test Item Value Reference Range Interpretation Comments Urine Glucose (UA) (test code = 2349-9) NEGATIVE NEGATIVE [facility] Area[facility] ketones detection by automated test [id number] 14:25:00* Test Item Value Reference Range Interpretation Comments Urine Ketones (test code = 36141-5) NEGATIVE NEGATIVE [facility] Area[facility]rine urobilinogen measurement by test strip (mass/volume)2020-08-20 14:25:00* Test Item Value Reference Range Interpretation Comments Urine Urobilinogen (test code = 36079-8) 0.2 mg/dL 0.2-1 [facility] Area[facility] total bilirubin measurement (mass/volume)2020-08-20 14:25:00* Test Item Value Reference Range Interpretation Comments Urine Bilirubin (test code = 1978-6) NEGATIVE NEGATIVE [facility] Area[facility] erythrocytes olmiecxzg7611-77-20 14:25:00* Test Item Value Reference Range Interpretation Comments Urine Blood (test code = 81975-6) NEGATIVE NEGATIVE [facility] AreaAutomated urine sediment leukocyte count by microscopy (number/high power field)2020-08-20 14:25:00* Test Item Value Reference Range Interpretation Comments Urine WBC (test code = 5821-4) 11-20 /[HPF] 0-5 [facility] AreaErythrocytes detection in urine sediment by light qtuubycgpn7051-80-74 14:25:00* Test Item Value Reference Range Interpretation Comments Urine RBC (test code = 02618-2) NONE /[HPF] 0-5 [facility] AreaBacteria detection in urine sediment by light dohsicbhbx8032-31-21 14:25:00* Test Item Value Reference Range Interpretation Comments Urine Bacteria (test code = 12452-4) FEW /[HPF] NONE [facility] AreaEpithelial cells detection in urine sediment by light drreeyjgux0360-81-09 14:25:00* Test Item Value Reference Range Interpretation Comments Urine Epithelial Cells (test code = 78372-8) FEW /[LPF] NONE [facility] AreaRenal epithelial cells detection in urine sediment by light ohilvvrbjc7428-29-40 14:25:00* Test Item Value Reference Range Interpretation Comments Urine Renal Epithelial Cells (test code = 38685-3) RARE NON E [facility]
--- OUTSIDE RECORDS SUMMARY | 2020-08-27 17:53 | XMS REPORT | Continuity of Care Document ---
Author Author [facility] t Organization [facility] Address [address] [place] [address] Phone Unavailable Care Team Providers Care Institutional Research Coordinator Name Role Phone NONSTAFF PCP Unavailable SAUNDRA FORBES Attphys Unavailable SAUNDRA FORBES Admphys Unavailable Problems Condition Name Condition Details Condition Category Status Onset Date Resolution Date Last Treatment Date Treating Clinician Comments Source Cerebrovascular accident (CVA) involving posterior circulation Problem Active [facility] Allergies, Adverse Reactions, Alerts This patient has no known allergies or adverse reactions. Social History Social Habit Start Date Stop Date Quantity Comments Source Sex Assigned At 1945 00:00:00 1945 00:[birth year]:00 Female [facility] Medications Ordered Medication Name Filled Medication Name Start Date Stop Da te Current Medication? Ordering Clinician Indication Dosage Frequency Signature (SIG) Comments Components Source Aspirin (Aspirin Ec) 81 Mg TABLET. Aspirin (Aspirin Ec) 81 Mg TABLET. 2020-08-23 14:10:00 Yes 81 Daily [facility] Atorvastatin Atorvastatin 2020-08-23 14:10:00 Yes 80 Bedtime [facility] Clopidogrel Bisulfate (Plavix) 75 Mg TABLET Clopidogre l Bisulfate (Plavix) 75 Mg TABLET 2020-08-23 14:10:00 Yes 75 Daily [facility] Losartan Potassium Losartan Potassium Yes Da jose [facility] Meclizine Hcl Meclizine Hcl Yes 25 Three Times A Day [facility] Metformin Hcl Metformin Hcl Yes 500 Twice A Day [facility] Amlodipine Besylate Amlodipine Besylate 2020-08-20 00:00:00 No 10 Bedtime [facility] Pravastatin Sodium Pravastatin Sodium 2020-08-20 00:00:00 No 40 Bedtime [facility] Vital Signs Vital Name Observation Time Observation Value Comments Source Body Temperature 2020-08-23 16:17:00 98.3 [degF] [facility] Heart Rate 2020-08-23 16:17:00 93 /min [facility] Respiratory rate 2020-08-23 16:17:00 17 /min [facility] BP Systolic 2020-08-23 16:17:00 118 mm[Hg] [facility] BP Diastolic 2020-08-23 16:17:00 81 mm[Hg] [facility] Oxygen saturation by Pulse oximetry 2020-08-23 16:17:00 100 /min [facility] BMI (Body Mass Index) 2020-08-20 21:58:00 24.0 kg/m2 [facility] Weight 2020-08-20 17:18:00 96 [lb_av] [facility] Procedures Procedure Date / Time Performed Performing Clinician Marychuy haydee Computed tomography of chest with contrast 2020-08-21 00:00:00 [facility] CT angiography of neck 2020-08-21 00:00:00 [facility] Computed tomography angiography of brain 2020-08-21 00:00:00 [facility] Magnetic resonance imaging of brain without contrast 2020-08-21 00:00:00 [facility] Computed tomography of brain without radiopaque contrast 2020-07 00:00:00 [facility] Plan of Care Planned Activity Planned Date Details Comments Source Instructions Diabetes and Diet [facility] Instructions Hypertension [facility] Encounters Start Date/Time End Date/Time Encounter Type Admission Type Attendi [facility] Facility Care Department Encounter ID Source 2020-08-20 18:16:00 2020-08-23 16:35:00 Discharged Inpatient 1 SAUNDRA FORBES [facility] [id number] [facility] Results Test Description Test Time Test Comments Results Result Comments Source Capillary blood glucose measurement by glucometer (mas s/volume) 2020-08-23 15:12:00 Test Item Bedside Glucose (test code = 32525-4) 127 mg/dL 70-120 Meter ID: [id number] [id number] 12:49:00[facility] : 1945 [place] [address] Patient Name: STARLA MARIN MR #: [id number] : 1945 Age/Sex: 74/F Req #: [id number] [facility] Physician: SAUNDRA FORBES MD Ordered by: AILEEN WOO MD Report #: [id number] Location: [facility] Room/Bed: [facility] __ Procedure: [id number] CT/CTA NECK Exam Date: 08/21/20 Exam Time: 1140 REPORT STATUS: Signed EXAMINATION: CT angiogram of the [place] an d neck with contrast [...] workstation under the direct supervision of the [facility] physician. Dose modulation, iterative reconstruction, and/or weight [...] and conf iguration. CT ANGIOGRAM OF THE [place]ER [place]: The internal carotid ar key [...] on 08/21/2020 1:12 PM Dictated By: BRITTANI Mckenna MD 11 Transcribed By: LATRELL on 08/21/201311 COPY TO: AILEEN WOO MD [facility] BRAIN 2020-08-21 12:49:00 [facility] : 1945 Sex: [facility] [place] [address] Patient Name: STARLA MARIN MR #: [id number] : 1945 Age/Sex: 74/F Req #: [id number] Adm Physician: SAUNDRA FORBES MD O rdered by: AILEEN WOO MD Report #: [id number] Location: MED/SURG3 Room/Bed: [facility] __ Procedure: [id number] CT/CTA BRAIN Exam Date: 08/21/20 Exam Time: 1140 REPORT STATUS: Signed EXAMINATION: CT angiogram of the [place] a nd neck with contrast CLINICAL HISTORY: [...] and con figuration. CT ANGIOGRAM OF THE [place]: The internal carotid a rtery [...] (0%). 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 : 1945 Sex: F [facility] Patient [facility] [address] [place] [address] Patient Name: STALRA MARIN MR #: [id number] : 1945 Age/Sex: 74/F Req #: [id number] [facility] Physician: SAUNDRA FORBES MD O rdered by: SAUNDRA FORBES MD Report #: [id number] Lo cation: MED/SURG3 Room/Bed: [facility] ____ Procedure: [id number] CT/CT CHEST W Exam Date: 08/21/20 Exam Time: 1140 REPORT STATUS: Signed CT of the chest, with contrast, 08/21/2020. History: Concern for mediastinal mass on prior chest x-ray. Com parison: Chest x-ray 08/20/2020. Technique: Multidetector CT scanning of [facility] chest was performed from the level of [...] By: LATRELL on 08/21/201244 COPY TO: SAUNDRA FORBES MD MRI BRAIN [id number] 11:45:00 [facility] : 1945 Sex: [facility] [place] [address] Patient Name: STARLA MARIN MR #: [id number] : 1945 Age/Sex: 74/F Req #: [id number] [facility] Physician: SAUNDRA FORBES MD O rdered by: AILEEN WOO MD Report #: [id number] Location: MED/SURG3 Room/Bed: [facility] __ Procedure: [id number] MRI/MRI BRAIN WO Exam Date: Exam Time: [...] restricted diffusion is consistent with acute left BRANCH STORE MANAGER ischemic inf arct, subtle left medial occipital [...] WOO MD Erythrocyte sedimentation rate by Westergren jyymwo5695-35-29 11:19:00* Test Item Value Reference Range Interpretation Comments Erythrocyte Sedimentation Rate (test code = 4537-7) 49 mm/h 0- 20 [facility] Campuserum nuclear antibody titer by idmlxodmxzucswncmu7943-89-78 11:19:00* Test Item Value Reference Range Interpretation Comments Anti-Nuclear Antibody Screen (test code = 5048-4) Negative . Negative <1:80 Borderline 1:80 Positive > 1:80Performed at: [facility] Lab[address] [id number] 3Lab Director: Mayito Lomeli MD, Phone: [phone] Health System East CampusFluoroscopic procedure less than one hour yyvgjaxa0999-26-46 09:48:00* Test Item Value Reference Range Interpretation Comments Hemoglobin A1c Percent (test code = Hemoglobin A1c Percent) 5.8 % 4.0-7.0 [facility] Campuserum or plasma triglyceride measurement (mass/volume)2020-08-21 09:48:00* Test Item Value Reference Range Interpretation Comments Triglycerides Level (test code = 2571-8) 104 mg/dL 0-149 [facility] Campuserum or plasma cholesterol measurement (mass/volume)2020-08-21 09:48:00* Test Item Value Reference Range Interpretation Comments Cholesterol Level (test code = 2093-3) 182 mg/dL 0-199 Less than 200 mg/dL Low Rkdu975 - 239 mg/dL Borderline Orzh472 m g/dl and greater High Risk [facility] Campuserum or plasma cholesterol in LDL measurement (mass/volume) 2020-08-21 09:48:00* Test Item Value Reference Range Interpretation Comments LDL Cholesterol (test code = 2089-1) 117 mg/dL 60-130 [facility] Campuserum or plasma cholesterol in HDL measurement (mass/volume)2020-08-21 09:48:00* Test Item Value Reference Range Interpretation Comments HDL Cholesterol (test code = 2085-9) 44 mg/dL 40-60 [facility] Campuserum or plasma total cholesterol/cholesterol in HDL mass kglvy9197-91-84 09:48:00* Test Item Value Reference Range Interpretation Comments Cholesterol/HDL Ratio (test code = 9830-1) 4.1 3.0-3.6 [facility] CampusFree thyroxine dvaof3704-20-53 09:48:00* Test Item Value Reference Range Interpretation Comments Free Thyroxine Index (test code = 98331-4) 2.8535 1.4-3.8 [facility] Campuserum or plasma thyroxine (T4) measurement (mass/volume)2020-08-21 09:48:00* Test Item Value Reference Range Interpretation Comments Thyroxine (T4) (test code = 3026-2) 8.81 ug/dL 4.5-10.9 Our current method for Total T4 is not recommended for use as the only marker fo r evaluating patients for thyroid disorders.[facility] Campuserum or plasma triiodothyronine resin uptake (T3RU)2020-08-21 09:48:00* Test Item Value Reference Range Interpretation Comments Triiodothyronine (T3) Uptake (test code = 3050-2) 32.39 % 22.5 -37.0 [facility] Campuserum or plasma thyrotropin measurement by detection limit <= 0.005 miu/l (units/volume)2020-08-21 09:48:00* Test Item Value Reference Range Interpretation Comments Thyroid Stimulating Hormone (TSH) (test code = 83519-1) 0.900 0.350-4.940 [facility] Campuserum or plasma homocysteine measurement (moles/volume)2020-08-21 09:48:00* Test Item Value Reference Range Interpretation Comments Homocysteine (test code = 51025-2) 11.1 0.0-19.2 Performed at: [address] [id number] Director: Mayito Lomeli MD, Phone: [phone] Health System East CampusFluoroscopic procedure less than one hour iyeyoolw4144-42-69 18:26:00* Test Item Value Reference Range Interpretation Comments Coronavirus (PCR) (test code = Coronavirus (PCR)) NOT DETECTED NOTD ETECTED SARS-CoV-2 PCRHologic Aptima SARS-CoV-2 assay is a nucleic amplification test in tended for the qualitative detection of RNA from SARS-CoV-2 from nasopharyngeal (MANGLE ROLLER) specimens. It is used under Emergency Use [...] repr at testing oc clinically indicated.Tesing performed by:[facility] Laboratory Services[address] [place] [address] [id number], Zacarias kim MD, PhDWise Health System East CampusBlst. j[facility] leukocytes automated count (number/volume)2020-08-20 17:30:00* Test Item Value Reference Range Interpretation Comments White Blood Count (test code = 6690-2) 10.13 10*3/uL 4.8-10.8 [facility] CampusBlst. joseph[facility] services erythrocytes automated count (number/volume)2020-08-20 17:30:00* Test Item Value Reference Range Interpretation Comments Red Blood Count (test code = 789-8) 4.89 10*6/mL 3.6-5.1 [facility] CampusBlood hemoglobin measurement (moles/volume)2020-08-20 17:30:00* Test Item Value Reference Range Interpretation Comments Hemoglobin (test code = 17807-4) 13.0 g/dL 12.0-16.0 [facility] CampusAutomated blood hematocrit (volume fraction)2020-08-20 17:30:00* Test Item Value Reference Range Interpretation Comments Hematocrit (test code = 4544-3) 40.7 % 34.2-44.1 [facility] CampusAutomated erythrocyte mean corpuscular tnzopv4135-55-97 17:30:00* Test Item Value Reference Range Interpretation Comments Mean Corpuscular Volume (test code = 787-2) 83.2 81-99 [facility] CampusAutomated erythrocyte mean corpuscular hemoglobin (mass per erythrocyte)2020-08-20 17:30:00* Test Item Value Reference Range Interpretation Comments Mean Corpuscular Hemoglobin (test code = 785-6) 26.6 pg 28-32 [facility] CampusAutomated erythrocyte mean corpuscular hemoglobin concentration measurement (mass/volume)2020-08-20 17:30:00* Test Item Value Reference Range Interpretation Comments Mean Corpuscular Hemoglobin Concent (test code = 786-4) 31.9 g/dL 31-35 [facility] CampusRDW RwtQv-Zqw6577-91-29 17:30:00* Test Item Value Reference Range Interpretation Comments Red Cell Distribution Width (test code = 12577-9) 13.1 % 11.7 -14.4 [facility] CampusAutomated blood platelet count (count/volume)2020-08-20 17:30:00* Test Item Value Reference Range Interpretation Comments Platelet Count (test code = 777-3) 341 10*3/uL 140-360 [facility] CampusAutomated blood segmented neutrophil count as percentage of total baennvqkfp0538-54-42 17:30:00* Test Item Value Reference Range Interpretation Comments Neutrophils (%) (Auto) (test code = 72619-2) 64.1 % 38.7-80.0 [facility] CampusAutomated blood lymphocyte count as percentage ot total kynkjibmpk2076-44-31 17:30:00* Test Item Value Reference Range Interpretation Comments Lymphocytes (%) (Auto) (test code = 736-9) 28.0 % 18.0-39.1 [facility] CampusAutomated blood monocyte count as percentage of total mmvztlxvna5131-88-13 17:30:00* Test Item Value Reference Range Interpretation Comments Monocytes (%) (Auto) (test code = 5905-5) 7.1 % 4.4-11.3 [facility] CampusAutomated blood eosinophil count as percentage of total jtkmvhtowf5274-02-73 17:30:00* Test Item Value Reference Range Interpretation Comments Eosinophils (%) (Auto) (test code = 713-8) 0.1 % 0.0-6.0 [facility] CampusAutomated blood basophil count as percentage of total dwutjtsdoj0576-70-41 17:30:00* Test Item Value Reference Range Interpretation Comments Basophils (%) (Auto) (test code = 706-2) 0.4 % 0.0-1.0 [facility] CampusFluoroscopic procedure less than one hour nfhwnqwo5131-09-81 17:30:00* Test Item Value Reference Range Interpretation Comments IM GRANULOCYTES % (test code = IM GRANULOCYTES %) 0.3 % 0.0- 1.0 [facility] CampusAutomated blood neutrophil count 2020-08-20 17:30:00* Test Item Value Reference Range Interpretation Comments Neutrophils # (Auto) (test code = 751-8) 6.5 2.1-6.9 [facility] CampusBlood lymphocytes count (number/volume) 2020-08-20 17:30:00* Test Item Value Reference Range Interpretation Comments Lymphocytes # (Auto) (test code = 18739-5) 2.8 1.0-3.2 [facility] CampusBlst. jose[facility] monocytes automated count (number/volume)2020-08-20 17:30:00* Test Item Value Reference Range Interpretation Comments Monocytes # (Auto) (test code = 742-7) 0.7 0.2-0.8 [facility] CampusAutomated blood eosinophil count 2020-08-20 17:30:00* Test Item Value Reference Range Interpretation Comments Eosinophils # (Auto) (test code = 711-2) 0.0 0.0-0.4 [facility] CampusAutomated blood basophil count (count/volume)2020-08-20 17:30:00* Test Item Value Reference Range Interpretation Comments Basophils # (Auto) (test code = 704-7) 0.0 0.0-0.1 [facility] CampusFluoroscopic procedure less than one hour otdtzbct4422-18-95 17:30:00* Test Item Value Reference Range Interpretation Comments Absolute Immature Granulocyte (auto ([place] t code = Absolute Immature Granulocyte (auto) 0.03 10*3/uL 0-0.1 [facility] Campuserum or plasma sodium measurement (moles/volume)2020-08-20 17:30:00* Test Item Value Reference Range Interpretation Comments Sodium Level (test code = 2951-2) 139 mmol/L 136-145 [facility] Campuserum or plasma potassium measurement (moles/volume)2020-08-20 17:30:00* Test Item Value Reference Range Interpretation Comments Potassium Level (test code = 2823-3) 4.4 mmol/L 3.5-5.1 [facility] Campuserum or plasma chloride measurement (moles/volume)2020-08-20 17:30:00* Test Item Value Reference Range Interpretation Comments Chloride Level (test code = 2075-0) 103 mmol/L 98-107 [facility] Campuserum or plasma carbon dioxide, total measurement (moles/volume)2020-08-20 17:30:00* Test Item Value Reference Range Interpretation Comments Carbon Dioxide Level (test code = 2028-9) 23 mmol/L 22- [facility] Campuserum or plasma anion mbi6860-66-37 17:30:00* Test Item Value Reference Range Interpretation Comments Anion Gap (test code = 16141-3) 17.4 mmol/L 8-16 [facility] Campuserum or plasma urea nitrogen measurement (mass/volume)2020-08-20 17:30:00* Test Item Value Reference Range Interpretation Comments Blood Urea Nitrogen (test code = 3094-0) 8 mg/dL 7-26 [facility] Campuserum or plasma creatinine measurement (mass/volume)2020-08-20 17:30:00* Test Item Value Reference Range Interpretation Comments Creatinine (test code = 2160-0) 0.72 mg/dL 0.57-1.11 [facility] Campuserum or plasma urea nitrogen/creatinine mass qnqjq4593-73-48 17:30:00* Test Item Value Reference Range Interpretation Comments BUN/Creatinine Ratio (test code = 3097-3) 11 6-25 [facility] CampusEstimated glomerular filtration rate (GFR) wwkssoouiwrpu5135-62-20 17:30:00* Test Item Value Reference Range Interpretation Comments Estimat Glomerular Filtration Rate (test code = 811035279) > 60 mL/ min >60 Ranges were taken from the National Kidney Disease Education Program and the [facility] Foundation literature.Reference ranges:60 or greater: Tegjut59-73 ( for 3 consecutive months): Chronic kidney disease 15 or less: Kidney failureWise Health System East CampusGlucose mnxnpqouemq2494-79-29 17:30:00* Test Item Value Reference Range Interpretation Comments Glucose Level (test code = LMP5999) 122 mg/dL 74-118 [facility] Campuserum or plasma calcium measurement (mass/volume)2020-08-20 17:30:00* Test Item Value Reference Range Interpretation Comments Calcium Level (test code = 03352-4) 9.5 mg/dL 8.4-10.2 [facility] Campuserum or plasma total bilirubin measurement (mass/volume)2020-08-20 17:30:00* Test Item Value Reference Range Interpretation Comments Total Bilirubin (test code = 1975-2) 0.5 mg/dL 0.2-1.2 [facility] CampusFluoroscopic procedure less than one hour fnofnrfo6094-55-13 17:30:00* Test Item Value Reference Range Interpretation Comments Aspartate Amino Transf (AST/SGOT) (test code = Aspartate Amino Transf (AST/SGOT)) 39 [IU]/L 5-34 [facility] Campuserum or plasma alanine aminotransferase measurement (enzymatic activity/volume)2020-08-20 17:30:00* Test Item Value Reference Range Interpretation Comments Alanine Aminotransferase (ALT/SGPT) (test code = 1742-6) 25 [IU]/L 0-55 [facility] Campuserum or plasma protein measurement (mass/volume)2020-08-20 17:30:00* Test Item Value Reference Range Interpretation Comments Total Protein (test code = 2885-2) 8.9 g/dL 6.5-8.1 [facility] Campuserum or plasma albumin measurement (mass/volume)2020-08-20 17:30:00* Test Item Value Reference Range Interpretation Comments Albumin (test code = 1751-7) 4.0 g/dL 3.5-5.0 [facility] CampusPlasma globulin measurement (mass/volume) 2020-08-20 17:30:00* Test Item Value Reference Range Interpretation Comments Globulin (test code = 52718-0) 4.9 g/dL 2.3-3.5 [facility] Campuserum or plasma albumin/globulin mass kuhrr9667-09-46 17:30:00* Test Item Value Reference Range Interpretation Comments Albumin/Globulin Ratio (test code = 1759-0) 0.8 0.8-2.0 [facility] Campuserum or plasma alkaline phosphatase measurement (enzymatic activity/volume)2020-08-20 17:30:00* Test Item Value Reference Range Interpretation Comments Alkaline Phosphatase (test code = 6768-6) 87 [IU]/L 40-150 [facility] Campuserum or plasma creatine kinase measurement (enzymatic activity/volume)2020-08-20 17:30:00* Test Item Value Reference Range Interpretation Comments Creatine Kinase (test code = 2157-6) 58 [IU]/L 29-168 [facility] Campuserum or plasma creatine kinase MB measurement (mass/volume)2020-08-20 17:30:00* Test Item Value Reference Range Interpretation Comments Creatine Kinase MB (test code = 49792-2) 0.70 ng/mL 0-5.0 [facility] CampusTroponin I measurement by highly sensitive enzyme mknlnqegdre5692-75-26 17:30:00* Test Item Value Reference Range Interpretation Comments Troponin I (test code = 28266-9) 0.001 ng/mL 0-0.300 [facility] CampusCT BRAIN BG4862-93-86 17:05:00 [facility]ENTERName: ST[facility]LA MARIN : 1945 Sex: F [facility] Patient [facility] [address] [address] Patient Name: STARLA MARIN MR #: [id number] : 1945 Age/Sex: 74/F Req #: [id number] Adm Physician: Jagruti laurent by: MOSES HANSON DO Report #: [id number] L ocation: ER Room/Bed: ___ Procedure: [id number] CT/CT BRAIN WO Exam Date: 08/20/20 Exam [...] collection. Parenchyma: Acute infarcts in the bilateral BRANCH STORE MANAGER territories are superimpos ed on acute or [...] infarcts (subacute or chronic) in the bilateral BRANCH STORE MANAGER territories with involvement of the bilateral hippocampi [...] on 08/20/201721 COPY TO: MOSES HANSON DO [facility] SINGLE (PORTABLE)2020-08-20 17:00:00 [facility]ENTERName: STARLA MAR[facility] : 1945 Sex: F [facility] Patient s [facility] [address], [place], [place] [address] Patient Name: STARLA MARIN MR #: [id number] : 1945 Age/Sex: 74/F Req #: [id number] Adm Physician: Jagruti laurent by: MOSES HANSON DO Report #: [id number] L ocation: ER Room/Bed: ___ Procedure: [id number] DX/CHEST SINGLE (PORTABLE) Exam Date: 08/20/20 Exam [...] COPY TO: MOSES HANSON DO Urine color bovwracqlvuqq1716-12-49 14:25:00* Test Item Value Reference Range Interpretation Comments Urine Color (test code = 5778-6) YELLOW YELLOW [facility] CampusUrine reniipk8173-20-79 14:25:00* Test Item Value Reference Range Interpretation Comments Urine Clarity (test code = 77042-3) SL CLOUDY CLEAR [facility] Campuspecific gravity of Urine by Test strip 2020-08-20 14:25:00* Test Item Value Reference Range Interpretation Comments Urine Specific [place] (test code = 5811-5) 1.015 1.010-1.02 5 [facility] CampusUrine pH measurement by automated test ymuxm9633-74-21 14:25:00* Test Item Value Reference Range Interpretation Comments Urine pH (test code = 38734-7) 7 5-7 [facility] CampusUrine leukocyte esterase detection by jbzbajhb9210-23-74 14:25:00* Test Item Value Reference Range Interpretation Comments Urine Leukocyte Esterase (test code = 5799-2) MODERATE NEGATIVE [facility] CampusUrine nitrite ehymrsmnr2773-91-82 14:25:00* Test Item Value Reference Range Interpretation Comments Urine Nitrite (test code = 04580-3) NEGATIVE NEGATIVE [facility] CampusUrine protein measurement by test strip (mass/volume)2020-08-20 14:25:00* Test Item Value Reference Range Interpretation Comments Urine Protein (test code = 5804-0) NEGATIVE NEGATIVE [facility] CampusUrine glucose mvbaldfhm9909-36-93 14:25:00* Test Item Value Reference Range Interpretation Comments Urine Glucose (UA) (test code = 2349-9) NEGATIVE NEGATIVE [facility] CampusUrine ketones detection by automated test drgmk3844-97-68 14:25:00* Test Item Value Reference Range Interpretation Comments Urine Ketones (test code = 80530-9) NEGATIVE NEGATIVE [facility] CampusUrine urobilinogen measurement by test strip (mass/volume)2020-08-20 14:25:00* Test Item Value Reference Range Interpretation Comments Urine Urobilinogen (test code = 74718-5) 0.2 mg/dL 0.2-1 [facility] (mass/volume)2020-08-20 14:25:00* Test Item Value Reference Range Interpretation Comments Urine Bilirubin (test code = 1978-6) NEGATIVE NEGATIVE [facility] erythrocytes [id number] 14:25:00* Test Item Value Reference Range Interpretation Comments Urine Blood (test code = 21047-4) NEGATIVE NEGATIVE [facility] sediment leukocyte count by microscopy (number/high power field)2020-08-20 14:25:00* Test Item Value Reference Range Interpretation Comments Urine WBC (test code = 5821-4) 11-20 /[HPF] 0-5 [facility]Erythrocytes detection in urine sediment by light [id number] 14:25:00* Test Item Value Reference Range Interpretation Comments Urine RBC (test code = 49451-8) NONE /[HPF] 0-5 [facility]Bacteria detection in urine sediment by light [id number] 14:25:00* Test Item Value Reference Range Interpretation Comments Urine Bacteria (test code = 33402-5) FEW /[HPF] NONE [facility]Epithelial cells detection in urine sediment by light [id number] 14:25:00* Test Item Value Reference Range Interpretation Comments Urine Epithelial Cells (test code = 37707-5) FEW /[LPF] NONE [facility]Renal epithelial cells detection in urine sediment by light [id number] 14:25:00* Test Item Value Reference Range Interpretation Comments Urine Renal Epithelial Cells (test code = 39520-6) RARE NON E [facility]
== END 2020-08-23 16:35 | disposition home health service (06) | DRG 65 ==
LOC: ER 17:10 → ERHOLD 17:16 → ER 18:08 → MED/SURG3 18:28
PROVIDERS: ADMIT Internal Medicine; ATTEND Internal Medicine
DX: I63.89 Other cerebral infarction (principal); G81.94 Hemiplegia, unspecified affecting left nondominant side; N39.0 Urinary tract infection, site not specified; E11.9 Type 2 diabetes mellitus without complications; I10 Essential (primary) hypertension; Z11.59 Encounter for screening for other viral diseases
CPT/HCPCS: 36415; 70450; 70496; 70498; 70551; 71045; 71260; 80053; 80061; 81001; 82550; 82553; 82948; 83036; 83090; 84436; 84443; 84479; 84484; 85025; 85651; 86039; 93005; 93306; 95812; 97139; 99284; J1650; J7050; Q9967